=== PATIENT | male | born 1970 | race Caucasian/White ===

== ENCOUNTER 2017-11-06 21:11 | Inpatient (IN) | payer OTHER ==
[2017-11-07] MEDS: ONDANSETRON 4 MG INJ IV (00:51)
[2017-11-07] MEDS: SOD CHLORIDE 0.9% 1,000 ML IV ×2 (00:52→10:38)
[2017-11-07 01:09] LABS: ADD MAN DIFF? NO
[2017-11-07 01:11] LABS: BASOPHILS % 0.2 % (0.0-2.0); HEMATOCRIT 31.4 % (42.0-52.0); HEMOGLOBIN 10.5 g/dl (14.0-18.0); LYMPHOCYTES # 1.7 10^3/ul (0.8-2.9); LYMPHOCYTES % 12.3 % (15.0-51.0); MEAN CORPUSCULAR HEMOGLOBIN 29.8 pg (29.0-33.0); MEAN CORPUSCULAR HGB CONC 33.4 g/dl (32.0-37.0); MEAN CORPUSCULAR VOLUME 89.2 fl (82.0-101.0); MEAN PLATELET VOLUME 9.5 fl (7.4-10.4); MONOCYTE # 0.7 10^3/ul (0.3-0.9); NEUTROPHIL # 11.1 10^3/ul (1.6-7.5); NEUTROPHILS % 82.1 % (39.0-77.0); PLATELET COUNT 241 10^3/UL (140-415); RED BLOOD COUNT 3.52 10^6/ul (4.70-6.10); RED CELL DISTRIBUTION WIDTH 11.9 % (11.5-14.5)
[2017-11-07 01:11] LABS: WHITE BLOOD COUNT 13.5 10^3/ul (4.8-10.8)
[2017-11-07 01:32] LABS: ACETAMINOPHEN < 10.0 ug/ml (10.0-30.0); ALANINE AMINOTRANSFERASE 31 IU/L (13-69); ALBUMIN 3.9 g/dl (3.3-4.9); ALBUMIN/GLOBULIN RATIO 1.21; ALKALINE PHOSPHATASE 78 IU/L (42-121); ANION GAP 14 (8-16); ASPARTATE AMINO TRANSFERASE 28 IU/L (15-46); BILIRUBIN,INDIRECT 0.8 mg/dl (0-1.1); BILIRUBIN,TOTAL 0.8 mg/dl (0.2-1.3); BLOOD UREA NITROGEN 19 mg/dl (7-20); CARBON DIOXIDE 24 mmol/L (21-31); CHLORIDE 103 mmol/L (97-110); ETHANOL < 10.0 mg/dl; GLUCOSE 114 mg/dl (70-220); POTASSIUM 3.5 mmol/L (3.5-5.1); SALICYLATE < 1.0 mg/dl (5.0-30.0); SODIUM 137 mmol/L (135-144); TOTAL PROTEIN 7.1 g/dl (6.1-8.1)
[2017-11-07] MEDS: SODIUM CHLORIDE 0.9% 1L BAG IV* (02:50)
[2017-11-07] MEDS: CEFEPIME 2GM/50 ML (PMX) 50 ML IVPB (02:54)
[2017-11-07 03:11] LABS: LACTIC ACID 1.1 mmol/L (0.5-2.0)
[2017-11-07 03:36] LABS: COCAINE Positive (NEGATIVE); OPIATES Negative (NEGATIVE)
[2017-11-07 03:43] LABS: ADD UMIC YES; UR ASCORBIC ACID NEGATIVE (NEGATIVE); UR BACTERIA MODERATE /HPF (NONE SEEN); UR BILIRUBIN (Dip) NEGATIVE (NEGATIVE); UR BLOOD (Dip) 1+ mg/dL (NEGATIVE); UR CLARITY SLIGHTLY CLOUDY (CLEAR); UR COLOR AMBER (YELLOW); UR GLUCOSE (Dip) NEGATIVE (NEGATIVE); UR KETONES (Dip) TRACE mg/dL (NEGATIVE); UR LEUKOCYTE ESTERASE (Dip) 3+ Leu/ul (NEGATIVE); UR MUCUS MANY /HPF (NONE SEEN); UR NITRITE (Dip) NEGATIVE (NEGATIVE); UR RBC 8 /HPF (0-5); UR SPECIFIC GRAVITY (Dip) 1.026 (1.003-1.030); UR SQUAMOUS EPITHELIAL CELL FEW /HPF (FEW); UR TOTAL PROTEIN (Dip) 1+ mg/dl (NEGATIVE); UR UROBILINOGEN (Dip) 2+ mg/dL (NEGATIVE); UR WBC > 182 /HPF (0-5)
[2017-11-07 03:47] LABS: BARBITURATES Negative (NEGATIVE); BENZODIAZEPINES Negative (NEGATIVE); CANNABINOIDS Positive (NEGATIVE)
[2017-11-07 04:03] LABS: AMPHETAMINE/METHAMPHETAMINE POSITIVE (NEGATIVE)
[2017-11-07 04:30] LABS: TROPONIN-I < 0.012 ng/ml (0.00-0.12)
[2017-11-07 07:04] LABS: LACTIC ACID 0.7 mmol/L (0.5-2.0)
[2017-11-07] MEDS ORDERED: NACL 0.9% 3 ML SYG IV (10:00)
[2017-11-07] MEDS ORDERED: ALBUTEROL/IPRATROPIUM (NEB) 3 ML AMP HHN (10:00)
[2017-11-07] MEDS ORDERED: ONDANSETRON 4 MG INJ IV (10:00)
[2017-11-07] MEDS: HEPARIN 5,000 UNIT/0.5 ML VIAL SC ×3 (10:37→21:02)
[2017-11-07] MEDS: CEFTRIAXONE 1 GM/50 ML (PMX) 50 ML IVPB (10:38)
[2017-11-07] MEDS: ACETAMINOPHEN 325 MG TAB PO (15:21)
[2017-11-07] MEDS ORDERED: VANCOMYCIN IV PER PHARMACY XX (18:00)
[2017-11-07 19:20] LABS: LACTIC ACID 1.7 mmol/L (0.5-2.0)
[2017-11-07] MEDS: morphine 2 MG INJ IV (20:35)
[2017-11-07] MEDS: NS + KCL 20 MEQ 1,000 ML IV (20:43)
[2017-11-07] MEDS: VANCOMYCIN 1.5 GM in SOD CHLORIDE 0.9% 250 ML IVPB (20:43)
[2017-11-07] MEDS: NITROGLYCERIN (SL) 0.4 MG TAB SL (20:58)
[2017-11-07] MEDS: IPRATROPIUM (NEB) 0.5 MG/2.5 ML AMP HHN (21:03)
[2017-11-07] MEDS: LEVALBUTEROL (NEB) 1.25 MG/0.5 ML AMP HHN (21:03)
[2017-11-07] MEDS: GUAIFENESIN 20 MG/ML 5ML CUP PO (21:43)
[2017-11-07 21:45] LABS: TROPONIN-I < 0.012 ng/ml (0.00-0.12)
[2017-11-08] MEDS: ACETAMINOPHEN 325 MG TAB PO (00:48)
[2017-11-08] MEDS: GUAIFENESIN 20 MG/ML 5ML CUP PO ×4 (05:45→22:41)
[2017-11-08 06:02] LABS: ADD MAN DIFF? NO
[2017-11-08 06:06] LABS: BASOPHILS % 0.3 % (0.0-2.0); EOSINOPHILS % 0.5 % (0.0-7.0); HEMATOCRIT 29.9 % (42.0-52.0); HEMOGLOBIN 9.8 g/dl (14.0-18.0); LYMPHOCYTES # 1.3 10^3/ul (0.8-2.9); MEAN CORPUSCULAR HEMOGLOBIN 30.2 pg (29.0-33.0); MEAN CORPUSCULAR HGB CONC 32.8 g/dl (32.0-37.0); MEAN PLATELET VOLUME 9.5 fl (7.4-10.4); MONOCYTE # 0.5 10^3/ul (0.3-0.9); MONOCYTES % 6.5 % (0.0-11.0); NEUTROPHILS % 76.4 % (39.0-77.0); PLATELET COUNT 232 10^3/UL (140-415); RED BLOOD COUNT 3.25 10^6/ul (4.70-6.10); RED CELL DISTRIBUTION WIDTH 11.9 % (11.5-14.5)
[2017-11-08 06:06] LABS: WHITE BLOOD COUNT 7.9 10^3/ul (4.8-10.8)
[2017-11-08 06:29] LABS: ALANINE AMINOTRANSFERASE 27 IU/L (13-69); ALBUMIN/GLOBULIN RATIO 1.07; ALKALINE PHOSPHATASE 67 IU/L (42-121); ANION GAP 8 (8-16); ASPARTATE AMINO TRANSFERASE 24 IU/L (15-46); BILIRUBIN,INDIRECT 0.4 mg/dl (0-1.1); BILIRUBIN,TOTAL 0.4 mg/dl (0.2-1.3); BLOOD UREA NITROGEN 6 mg/dl (7-20); CALCIUM 8.5 mg/dl (8.4-10.2); CARBON DIOXIDE 30 mmol/L (21-31); CHLORIDE 110 mmol/L (97-110); CREATININE 0.88 mg/dl (0.61-1.24); GLUCOSE 106 mg/dl (70-220); PHOSPHORUS 3.3 mg/dl (2.5-4.9); POTASSIUM 4.2 mmol/L (3.5-5.1); SODIUM 144 mmol/L (135-144); TOTAL PROTEIN 5.8 g/dl (6.1-8.1)
[2017-11-08 06:44] LABS: MAGNESIUM 2.1 mg/dl (1.7-2.5)
[2017-11-08] MEDS: HEPARIN 5,000 UNIT/0.5 ML VIAL SC ×2 (09:00→21:00)
[2017-11-08] MEDS: morphine 2 MG INJ IV ×4 (09:00→22:41)
[2017-11-08] MEDS: VANCOMYCIN 1 GM 250 ML IVPB (09:01)
[2017-11-08] MEDS: NS + KCL 20 MEQ 1,000 ML IV (09:20)
[2017-11-08] MEDS: HYDROCODONE/APAP (5/325) TAB PO (12:00)
[2017-11-08] MEDS: CEFTRIAXONE 1 GM/50 ML (PMX) 50 ML IVPB (14:21)
[2017-11-08] MEDS: MEROPENEM 1 GM/50ML(PMX) 50 ML IVPB ×2 (15:04→22:08)
[2017-11-08] MEDS ORDERED: PHENYTOIN (25 MG/ML PO SYG) PO (21:00)
[2017-11-08] MEDS: PHENYTOIN (100 MG/4 ML) CUP PO (22:08)
[2017-11-08] MEDS: OXCARBAZEPINE 300 MG TAB PO (22:09)
[2017-11-08] MEDS: traZODone 100 MG TAB PO (22:09)
[2017-11-09 01:45] LABS: VANCOMYCIN,TROUGH < 5.0 ug/ml (10.0-20.0)
[2017-11-09] MEDS: VANCOMYCIN 1 GM 250 ML IVPB ×3 (04:48→20:02)
[2017-11-09] MEDS: MEROPENEM 1 GM/50ML(PMX) 50 ML IVPB (04:49)
[2017-11-09] MEDS: PHENYTOIN (100 MG/4 ML) CUP PO ×2 (08:29→20:52)
[2017-11-09] MEDS: VENLAFAXINE (XR) 37.5 MG CAP PO (08:29)
[2017-11-09] MEDS: OXCARBAZEPINE 300 MG TAB PO ×2 (08:29→20:52)
[2017-11-09] MEDS: HEPARIN 5,000 UNIT/0.5 ML VIAL SC ×2 (08:29→20:57)
[2017-11-09] MEDS ORDERED: VENLAFAXINE (XR) 75 MG CAP PO (09:00)
[2017-11-09] MEDS: CEFTRIAXONE 1 GM/50 ML (PMX) 50 ML IVPB (09:35)
[2017-11-09 12:07] LABS: ADD MAN DIFF? NO
[2017-11-09 12:11] LABS: BASOPHILS % 0.1 % (0.0-2.0); EOSINOPHILS # 0.2 10^3/ul (0.0-0.5); EOSINOPHILS % 2.2 % (0.0-7.0); HEMATOCRIT 33.4 % (42.0-52.0); HEMOGLOBIN 11.1 g/dl (14.0-18.0); LYMPHOCYTES % 15.4 % (15.0-51.0); MEAN CORPUSCULAR HEMOGLOBIN 30.3 pg (29.0-33.0); MEAN CORPUSCULAR HGB CONC 33.2 g/dl (32.0-37.0); MEAN CORPUSCULAR VOLUME 91.3 fl (82.0-101.0); MEAN PLATELET VOLUME 9.2 fl (7.4-10.4); MONOCYTE # 0.5 10^3/ul (0.3-0.9); MONOCYTES % 7.3 % (0.0-11.0); NEUTROPHILS % 74.7 % (39.0-77.0); PLATELET COUNT 329 10^3/UL (140-415); RED BLOOD COUNT 3.66 10^6/ul (4.70-6.10); RED CELL DISTRIBUTION WIDTH 11.6 % (11.5-14.5)
[2017-11-09 12:11] LABS: WHITE BLOOD COUNT 6.7 10^3/ul (4.8-10.8)
[2017-11-09] MEDS: morphine 2 MG INJ IV (12:15)
[2017-11-09 12:31] LABS: ANION GAP 10 (8-16); BLOOD UREA NITROGEN 8 mg/dl (7-20); CALCIUM 8.5 mg/dl (8.4-10.2); CARBON DIOXIDE 29 mmol/L (21-31); CHLORIDE 108 mmol/L (97-110); CREATININE 0.77 mg/dl (0.61-1.24); GLUCOSE 106 mg/dl (70-220); POTASSIUM 4.1 mmol/L (3.5-5.1); SODIUM 143 mmol/L (135-144)
[2017-11-09] MEDS ORDERED: IBUPROFEN 400 MG TAB NGT (13:00)
[2017-11-09] MEDS: ERTAPENEM SODIUM 1 GM in SOD CHLORIDE 0.9% 100 ML IVPB (15:42)
[2017-11-09] MEDS: HYDROCODONE/APAP (5/325) TAB PO (16:18)
[2017-11-09] MEDS ORDERED: VANCOMYCIN 1 GM 250 ML IVPB (17:00)
[2017-11-09] MEDS: traZODone 100 MG TAB PO (20:52)
[2017-11-09] MEDS: GUAIFENESIN 20 MG/ML 5ML CUP PO (20:58)
[2017-11-10] MEDS: VANCOMYCIN 1 GM 250 ML IVPB ×3 (04:06→20:33)
[2017-11-10] MEDS: GUAIFENESIN 20 MG/ML 5ML CUP PO (06:19)
[2017-11-10] MEDS: HEPARIN 5,000 UNIT/0.5 ML VIAL SC (09:00)
[2017-11-10] MEDS: PHENYTOIN (100 MG/4 ML) CUP PO ×2 (09:13→20:33)
[2017-11-10] MEDS: OXCARBAZEPINE 300 MG TAB PO ×2 (09:13→20:32)
[2017-11-10] MEDS: VENLAFAXINE (XR) 75 MG CAP PO (09:13)
[2017-11-10] MEDS: HYDROCODONE/APAP (5/325) TAB PO ×3 (09:15→20:34)
[2017-11-10 12:14] LABS: VANCOMYCIN,TROUGH 12.7 ug/ml (10.0-20.0)
[2017-11-10] MEDS: ERTAPENEM SODIUM 1 GM in SOD CHLORIDE 0.9% 100 ML IVPB (16:01)
[2017-11-10] MEDS: RIVAROXABAN 20 MG TABLET PO (18:26)
[2017-11-10] MEDS: traZODone 100 MG TAB PO (20:32)
[2017-11-11] MEDS: VANCOMYCIN 1 GM 250 ML IVPB ×3 (04:06→22:48)
[2017-11-11] MEDS: PHENYTOIN (100 MG/4 ML) CUP PO ×2 (08:48→20:15)
[2017-11-11] MEDS: OXCARBAZEPINE 300 MG TAB PO ×2 (08:48→20:15)
[2017-11-11] MEDS: VENLAFAXINE (XR) 75 MG CAP PO (08:48)
[2017-11-11] MEDS: GUAIFENESIN 20 MG/ML 5ML CUP PO ×2 (08:48→17:44)
[2017-11-11] MEDS: HYDROCODONE/APAP (5/325) TAB PO ×2 (08:54→17:44)
[2017-11-11] MEDS: RIVAROXABAN 20 MG TABLET PO (17:44)
[2017-11-11] MEDS: ERTAPENEM SODIUM 1 GM in SOD CHLORIDE 0.9% 100 ML IVPB (17:44)
[2017-11-11] MEDS: DOCUSATE SODIUM 100 MG CAP PO (20:15)
[2017-11-11] MEDS: traZODone 100 MG TAB PO (20:15)
[2017-11-12] MEDS: VANCOMYCIN 1 GM 250 ML IVPB ×2 (06:40→16:29)
[2017-11-12] MEDS: GUAIFENESIN 20 MG/ML 5ML CUP PO ×3 (08:23→21:38)
[2017-11-12] MEDS: OXCARBAZEPINE 300 MG TAB PO ×2 (08:23→21:35)
[2017-11-12] MEDS: HYDROCODONE/APAP (5/325) TAB PO ×3 (08:23→21:38)
[2017-11-12] MEDS: VENLAFAXINE (XR) 75 MG CAP PO (08:23)
[2017-11-12] MEDS: DOCUSATE SODIUM 100 MG CAP PO ×2 (08:23→21:35)
[2017-11-12] MEDS: PHENYTOIN (100 MG/4 ML) CUP PO ×2 (08:23→21:35)
[2017-11-12 10:55] LABS: BLOOD UREA NITROGEN 9 mg/dl (7-20)
[2017-11-12 10:55] LABS: CREATININE 0.78 mg/dl (0.61-1.24)
[2017-11-12] MEDS: ERTAPENEM SODIUM 1 GM in SOD CHLORIDE 0.9% 100 ML IVPB (14:39)
[2017-11-12] MEDS: RIVAROXABAN 20 MG TABLET PO (18:44)
[2017-11-12] MEDS: traZODone 100 MG TAB PO (22:27)
[2017-11-13] MEDS: VANCOMYCIN 1 GM 250 ML IVPB ×4 (00:41→23:39)
[2017-11-13] MEDS: VENLAFAXINE (XR) 75 MG CAP PO (08:42)
[2017-11-13] MEDS: PHENYTOIN (100 MG/4 ML) CUP PO ×2 (08:42→21:51)
[2017-11-13] MEDS: DOCUSATE SODIUM 100 MG CAP PO ×2 (08:42→23:39)
[2017-11-13] MEDS: OXCARBAZEPINE 300 MG TAB PO ×2 (08:42→21:52)
[2017-11-13] MEDS: HYDROCODONE/APAP (5/325) TAB PO ×2 (08:50→21:54)
[2017-11-13] MEDS: ERTAPENEM SODIUM 1 GM in SOD CHLORIDE 0.9% 100 ML IVPB (16:50)
[2017-11-13] MEDS: RIVAROXABAN 20 MG TABLET PO (17:50)
[2017-11-13] MEDS: traZODone 100 MG TAB PO (21:52)
[2017-11-13 22:57] LABS: VANCOMYCIN,TROUGH 13.3 ug/ml (10.0-20.0)
[2017-11-14] MEDS: VANCOMYCIN 1 GM 250 ML IVPB ×3 (06:29→23:31)
[2017-11-14] MEDS: PHENYTOIN (100 MG/4 ML) CUP PO ×2 (09:00→21:28)
[2017-11-14] MEDS: VENLAFAXINE (XR) 75 MG CAP PO (09:00)
[2017-11-14] MEDS: OXCARBAZEPINE 300 MG TAB PO ×2 (09:00→21:27)
[2017-11-14] MEDS: HYDROCODONE/APAP (5/325) TAB PO ×2 (09:00→21:27)
[2017-11-14] MEDS: DOCUSATE SODIUM 100 MG CAP PO ×2 (09:00→21:27)
[2017-11-14] MEDS: LORAZEPAM 1 MG TAB PO (11:46)
[2017-11-14] MEDS: LIDOCAINE 1% (MPF) 5 ML VIAL SC (12:50)
[2017-11-14] MEDS: SOD CHLORIDE 0.9% 100 ML (13:15)
[2017-11-14] MEDS: ERTAPENEM SODIUM 1 GM in SOD CHLORIDE 0.9% 100 ML IVPB (15:10)
[2017-11-14] MEDS: RIVAROXABAN 20 MG TABLET PO (17:45)
[2017-11-14] MEDS: traZODone 100 MG TAB PO (21:27)
[2017-11-15] MEDS: MENTHOL/METH SALICYLATE 30 GM OINT TOP (02:05)
[2017-11-15] MEDS: VANCOMYCIN 1 GM 250 ML IVPB ×3 (06:04→23:35)
[2017-11-15] MEDS: GUAIFENESIN 20 MG/ML 5ML CUP PO (06:04)
[2017-11-15] MEDS: VENLAFAXINE (XR) 75 MG CAP PO (09:08)
[2017-11-15] MEDS: PHENYTOIN (100 MG/4 ML) CUP PO ×2 (09:08→20:30)
[2017-11-15] MEDS: OXCARBAZEPINE 300 MG TAB PO ×2 (09:09→20:30)
[2017-11-15] MEDS: DOCUSATE SODIUM 100 MG CAP PO ×2 (09:09→20:30)
[2017-11-15 12:13] LABS: BLOOD UREA NITROGEN 12 mg/dl (7-20)
[2017-11-15] MEDS: HYDROCODONE/APAP (5/325) TAB PO (14:56)
[2017-11-15] MEDS: ERTAPENEM SODIUM 1 GM in SOD CHLORIDE 0.9% 100 ML IVPB (16:26)
[2017-11-15] MEDS: RIVAROXABAN 20 MG TABLET PO (17:29)
[2017-11-15] MEDS: traZODone 100 MG TAB PO (20:33)
[2017-11-16] MEDS: VANCOMYCIN 1 GM 250 ML IVPB ×3 (06:17→23:20)
[2017-11-16] MEDS: PHENYTOIN (100 MG/4 ML) CUP PO ×2 (09:27→20:55)
[2017-11-16] MEDS: OXCARBAZEPINE 300 MG TAB PO ×2 (09:27→20:55)
[2017-11-16] MEDS: VENLAFAXINE (XR) 75 MG CAP PO (09:27)
[2017-11-16] MEDS: DOCUSATE SODIUM 100 MG CAP PO ×2 (09:27→20:55)
[2017-11-16] MEDS: HYDROCODONE/APAP (5/325) TAB PO ×2 (09:27→16:38)
[2017-11-16] MEDS: ERTAPENEM SODIUM 1 GM in SOD CHLORIDE 0.9% 100 ML IVPB (16:37)
[2017-11-16] MEDS: RIVAROXABAN 20 MG TABLET PO (17:21)
[2017-11-16] MEDS: traZODone 100 MG TAB PO (20:55)
[2017-11-17 07:35] LABS: VANCOMYCIN,TROUGH 18.7 ug/ml (10.0-20.0)
[2017-11-17] MEDS: VANCOMYCIN 1 GM 250 ML IVPB (08:19)
[2017-11-17] MEDS: PHENYTOIN (100 MG/4 ML) CUP PO ×2 (08:20→20:54)
[2017-11-17] MEDS: DOCUSATE SODIUM 100 MG CAP PO ×2 (08:20→20:53)
[2017-11-17] MEDS: OXCARBAZEPINE 300 MG TAB PO ×2 (08:20→20:53)
[2017-11-17] MEDS: VENLAFAXINE (XR) 75 MG CAP PO (08:20)
[2017-11-17] MEDS: VANCOMYCIN 750 MG in DEXTROSE 5% 150 ML IVPB ×2 (13:45→22:55)
[2017-11-17] MEDS: ERTAPENEM SODIUM 1 GM in SOD CHLORIDE 0.9% 100 ML IVPB (15:24)
[2017-11-17] MEDS: HYDROCODONE/APAP (5/325) TAB PO ×2 (15:24→22:07)
[2017-11-17] MEDS: RIVAROXABAN 20 MG TABLET PO (18:11)
[2017-11-17] MEDS: traZODone 100 MG TAB PO (20:53)
[2017-11-18] MEDS: VANCOMYCIN 750 MG in DEXTROSE 5% 150 ML IVPB ×3 (05:37→23:19)
[2017-11-18 06:25] LABS: BLOOD UREA NITROGEN 13 mg/dl (7-20)
[2017-11-18 06:25] LABS: CREATININE 0.81 mg/dl (0.61-1.24)
[2017-11-18] MEDS: VENLAFAXINE (XR) 75 MG CAP PO (08:53)
[2017-11-18] MEDS: PHENYTOIN (100 MG/4 ML) CUP PO ×2 (08:53→22:37)
[2017-11-18] MEDS: DOCUSATE SODIUM 100 MG CAP PO ×2 (08:53→22:37)
[2017-11-18] MEDS: OXCARBAZEPINE 300 MG TAB PO ×2 (08:53→22:37)
[2017-11-18] MEDS: HYDROCODONE/APAP (5/325) TAB PO ×2 (08:58→22:47)
[2017-11-18] MEDS: ERTAPENEM SODIUM 1 GM in SOD CHLORIDE 0.9% 100 ML IVPB (17:15)
[2017-11-18] MEDS: RIVAROXABAN 20 MG TABLET PO (17:15)
[2017-11-18 22:06] LABS: VANCOMYCIN,TROUGH 13.1 ug/ml (10.0-20.0)
[2017-11-18] MEDS: traZODone 100 MG TAB PO (22:37)
[2017-11-19] MEDS: VANCOMYCIN 750 MG in DEXTROSE 5% 150 ML IVPB ×3 (05:59→21:52)
[2017-11-19] MEDS: PHENYTOIN (100 MG/4 ML) CUP PO ×2 (08:51→20:35)
[2017-11-19] MEDS: VENLAFAXINE (XR) 75 MG CAP PO (08:51)
[2017-11-19] MEDS: OXCARBAZEPINE 300 MG TAB PO ×2 (08:51→20:35)
[2017-11-19] MEDS: DOCUSATE SODIUM 100 MG CAP PO ×2 (08:51→20:34)
[2017-11-19] MEDS: HYDROCODONE/APAP (5/325) TAB PO ×2 (08:57→14:59)
[2017-11-19] MEDS: ERTAPENEM SODIUM 1 GM in SOD CHLORIDE 0.9% 100 ML IVPB (15:39)
[2017-11-19] MEDS: RIVAROXABAN 20 MG TABLET PO (17:19)
[2017-11-19] MEDS: NITROGLYCERIN (SL) 0.4 MG TAB SL ×3 (19:40→20:16)
[2017-11-19] MEDS: morphine 2 MG INJ IV (20:32)
[2017-11-19] MEDS: traZODone 100 MG TAB PO (20:35)
[2017-11-19 22:53] LABS: TROPONIN-I < 0.012 ng/ml (0.000-0.120)
[2017-11-20] MEDS: VANCOMYCIN 750 MG in DEXTROSE 5% 150 ML IVPB ×3 (05:26→22:12)
[2017-11-20] MEDS: PHENYTOIN (100 MG/4 ML) CUP PO ×2 (09:22→21:02)
[2017-11-20] MEDS: OXCARBAZEPINE 300 MG TAB PO ×2 (09:22→22:11)
[2017-11-20] MEDS: DOCUSATE SODIUM 100 MG CAP PO ×2 (09:22→21:02)
[2017-11-20] MEDS: VENLAFAXINE (XR) 75 MG CAP PO (09:22)
[2017-11-20] MEDS: HYDROCODONE/APAP (5/325) TAB PO ×2 (09:34→22:17)
[2017-11-20] MEDS: LACTOBACILLUS RHAMNOSUS CAP PO ×2 (12:40→21:02)
[2017-11-20] MEDS: ERTAPENEM SODIUM 1 GM in SOD CHLORIDE 0.9% 100 ML IVPB (16:33)
[2017-11-20] MEDS: RIVAROXABAN 20 MG TABLET PO (17:30)
[2017-11-20] MEDS: traZODone 100 MG TAB PO (21:03)
[2017-11-21] MEDS: VANCOMYCIN 750 MG in DEXTROSE 5% 150 ML IVPB (06:22)
[2017-11-21 06:26] LABS: ADD MAN DIFF? NO
[2017-11-21 06:32] LABS: BASOPHILS % 0.6 % (0.0-2.0); EOSINOPHILS # 0.2 10^3/ul (0.0-0.5); EOSINOPHILS % 3.5 % (0.0-7.0); HEMATOCRIT 33.4 % (42.0-52.0); HEMOGLOBIN 10.6 g/dl (14.0-18.0); LYMPHOCYTES # 2.1 10^3/ul (0.8-2.9); LYMPHOCYTES % 42.9 % (15.0-51.0); MEAN CORPUSCULAR HEMOGLOBIN 29.8 pg (29.0-33.0); MEAN CORPUSCULAR HGB CONC 31.7 g/dl (32.0-37.0); MEAN CORPUSCULAR VOLUME 93.8 fl (82.0-101.0); MEAN PLATELET VOLUME 8.8 fl (7.4-10.4); MONOCYTE # 0.3 10^3/ul (0.3-0.9); NEUTROPHIL # 2.2 10^3/ul (1.6-7.5); NEUTROPHILS % 45.2 % (39.0-77.0); PLATELET COUNT 393 10^3/UL (140-415); RED BLOOD COUNT 3.56 10^6/ul (4.70-6.10); RED CELL DISTRIBUTION WIDTH 12.3 % (11.5-14.5)
[2017-11-21 06:32] LABS: WHITE BLOOD COUNT 4.9 10^3/ul (4.8-10.8)
[2017-11-21 07:06] LABS: INR 1.09; PROTIME 14.2 Sec (11.9-14.9); PT RATIO 1.1
[2017-11-21 07:26] LABS: ALANINE AMINOTRANSFERASE 27 IU/L (13-69); ALBUMIN 3.4 g/dl (3.3-4.9); ALBUMIN/GLOBULIN RATIO 1.06; ALKALINE PHOSPHATASE 109 IU/L (42-121); ANION GAP 13 (8-16); ASPARTATE AMINO TRANSFERASE 22 IU/L (15-46); BILIRUBIN,INDIRECT 0.1 mg/dl (0-1.1); BILIRUBIN,TOTAL 0.1 mg/dl (0.2-1.3); BLOOD UREA NITROGEN 13 mg/dl (7-20); CALCIUM 8.9 mg/dl (8.4-10.2); CARBON DIOXIDE 28 mmol/L (21-31); CHLORIDE 108 mmol/L (97-110); CREATININE 0.82 mg/dl (0.61-1.24); GLUCOSE 88 mg/dl (70-220); MAGNESIUM 1.9 mg/dl (1.7-2.5); PHOSPHORUS 4.7 mg/dl (2.5-4.9); POTASSIUM 4.3 mmol/L (3.5-5.1); SODIUM 145 mmol/L (135-144); TOTAL PROTEIN 6.6 g/dl (6.1-8.1)
[2017-11-21] MEDS: LACTOBACILLUS RHAMNOSUS CAP PO ×2 (08:08→20:50)
[2017-11-21] MEDS: PHENYTOIN (100 MG/4 ML) CUP PO ×2 (08:08→20:50)
[2017-11-21] MEDS: OXCARBAZEPINE 300 MG TAB PO ×2 (08:09→20:50)
[2017-11-21] MEDS: VENLAFAXINE (XR) 75 MG CAP PO (08:09)
[2017-11-21] MEDS: DOCUSATE SODIUM 100 MG CAP PO ×2 (08:09→20:50)
[2017-11-21 08:27] LABS: PHENYTOIN (DILANTIN) 3.6 ug/ml (10.0-20.0)
[2017-11-21] MEDS: HYDROCODONE/APAP (5/325) TAB PO ×2 (09:25→16:29)
[2017-11-21] MEDS: RIVAROXABAN 20 MG TABLET PO (17:18)
[2017-11-21] MEDS: traZODone 100 MG TAB PO (20:50)
[2017-11-22 06:20] LABS: ADD MAN DIFF? NO
[2017-11-22 06:29] LABS: BASOPHILS % 0.6 % (0.0-2.0); EOSINOPHILS # 0.2 10^3/ul (0.0-0.5); EOSINOPHILS % 4.5 % (0.0-7.0); HEMATOCRIT 35.2 % (42.0-52.0); HEMOGLOBIN 11.1 g/dl (14.0-18.0); MEAN CORPUSCULAR HEMOGLOBIN 29.6 pg (29.0-33.0); MEAN CORPUSCULAR HGB CONC 31.5 g/dl (32.0-37.0); MEAN CORPUSCULAR VOLUME 93.9 fl (82.0-101.0); MEAN PLATELET VOLUME 9.2 fl (7.4-10.4); MONOCYTE # 0.4 10^3/ul (0.3-0.9); MONOCYTES % 7.4 % (0.0-11.0); NEUTROPHIL # 2.1 10^3/ul (1.6-7.5); NEUTROPHILS % 44.1 % (39.0-77.0); PLATELET COUNT 424 10^3/UL (140-415); RED BLOOD COUNT 3.75 10^6/ul (4.70-6.10); RED CELL DISTRIBUTION WIDTH 12.3 % (11.5-14.5)
[2017-11-22 06:29] LABS: WHITE BLOOD COUNT 4.7 10^3/ul (4.8-10.8)
[2017-11-22 07:31] LABS: ALANINE AMINOTRANSFERASE 26 IU/L (13-69); ALBUMIN 3.6 g/dl (3.3-4.9); ALBUMIN/GLOBULIN RATIO 1.16; ALKALINE PHOSPHATASE 101 IU/L (42-121); ANION GAP 13 (8-16); ASPARTATE AMINO TRANSFERASE 22 IU/L (15-46); BILIRUBIN,INDIRECT 0.1 mg/dl (0-1.1); BILIRUBIN,TOTAL 0.1 mg/dl (0.2-1.3); BLOOD UREA NITROGEN 16 mg/dl (7-20); CALCIUM 9.1 mg/dl (8.4-10.2); CARBON DIOXIDE 29 mmol/L (21-31); CHLORIDE 107 mmol/L (97-110); CREATININE 0.83 mg/dl (0.61-1.24); GLUCOSE 92 mg/dl (70-220); MAGNESIUM 1.9 mg/dl (1.7-2.5); PHOSPHORUS 5.6 mg/dl (2.5-4.9); POTASSIUM 4.2 mmol/L (3.5-5.1); SODIUM 145 mmol/L (135-144); TOTAL PROTEIN 6.7 g/dl (6.1-8.1)
[2017-11-22] MEDS: HYDROCODONE/APAP (5/325) TAB PO ×3 (08:46→20:20)
[2017-11-22] MEDS: VENLAFAXINE (XR) 75 MG CAP PO (08:46)
[2017-11-22] MEDS: OXCARBAZEPINE 300 MG TAB PO ×2 (08:46→20:19)
[2017-11-22] MEDS: PHENYTOIN (100 MG/4 ML) CUP PO ×2 (08:46→20:19)
[2017-11-22] MEDS: DOCUSATE SODIUM 100 MG CAP PO ×2 (08:46→20:19)
[2017-11-22] MEDS: LACTOBACILLUS RHAMNOSUS CAP PO ×2 (08:46→20:20)
[2017-11-22] MEDS: RIVAROXABAN 20 MG TABLET PO (18:01)
[2017-11-22] MEDS: traZODone 100 MG TAB PO (20:20)
[2017-11-23] MEDS: DOCUSATE SODIUM 100 MG CAP PO ×2 (08:50→20:46)
[2017-11-23] MEDS: VENLAFAXINE (XR) 75 MG CAP PO (08:50)
[2017-11-23] MEDS: LACTOBACILLUS RHAMNOSUS CAP PO ×2 (08:50→20:46)
[2017-11-23] MEDS: OXCARBAZEPINE 300 MG TAB PO ×2 (08:50→20:47)
[2017-11-23] MEDS: HYDROCODONE/APAP (5/325) TAB PO ×2 (08:50→20:52)
[2017-11-23] MEDS: PHENYTOIN (100 MG/4 ML) CUP PO ×2 (08:50→20:46)
[2017-11-23] MEDS: RIVAROXABAN 20 MG TABLET PO (17:40)
[2017-11-23] MEDS: traZODone 100 MG TAB PO (20:46)
[2017-11-24] MEDS: LACTOBACILLUS RHAMNOSUS CAP PO ×2 (08:46→20:52)
[2017-11-24] MEDS: PHENYTOIN (100 MG/4 ML) CUP PO ×2 (08:46→20:52)
[2017-11-24] MEDS: OXCARBAZEPINE 300 MG TAB PO ×2 (08:46→20:53)
[2017-11-24] MEDS: DOCUSATE SODIUM 100 MG CAP PO ×2 (08:46→20:52)
[2017-11-24] MEDS: VENLAFAXINE (XR) 75 MG CAP PO (08:47)
[2017-11-24] MEDS: HYDROCODONE/APAP (5/325) TAB PO ×2 (08:53→20:59)
[2017-11-24] MEDS: RIVAROXABAN 20 MG TABLET PO (18:29)
[2017-11-24] MEDS: traZODone 100 MG TAB PO (20:52)
[2017-11-25] MEDS: VENLAFAXINE (XR) 75 MG CAP PO (09:15)
[2017-11-25] MEDS: HYDROCODONE/APAP (5/325) TAB PO ×2 (09:15→18:37)
[2017-11-25] MEDS: DOCUSATE SODIUM 100 MG CAP PO ×2 (09:15→20:48)
[2017-11-25] MEDS: LACTOBACILLUS RHAMNOSUS CAP PO ×2 (09:16→20:48)
[2017-11-25] MEDS: PHENYTOIN (100 MG/4 ML) CUP PO ×2 (09:16→20:48)
[2017-11-25] MEDS: OXCARBAZEPINE 300 MG TAB PO ×2 (09:16→20:48)
[2017-11-25] MEDS: RIVAROXABAN 20 MG TABLET PO (17:01)
[2017-11-25] MEDS: traZODone 100 MG TAB PO (20:48)
[2017-11-26] MEDS: DOCUSATE SODIUM 100 MG CAP PO ×2 (08:32→20:52)
[2017-11-26] MEDS: VENLAFAXINE (XR) 75 MG CAP PO (08:33)
[2017-11-26] MEDS: OXCARBAZEPINE 300 MG TAB PO ×2 (08:33→20:55)
[2017-11-26] MEDS: LACTOBACILLUS RHAMNOSUS CAP PO ×2 (08:33→20:52)
[2017-11-26] MEDS: PHENYTOIN (100 MG/4 ML) CUP PO ×2 (08:33→20:55)
[2017-11-26] MEDS: HYDROCODONE/APAP (5/325) TAB PO ×3 (08:39→21:00)
[2017-11-26] MEDS: RIVAROXABAN 20 MG TABLET PO (17:24)
[2017-11-26] MEDS: traZODone 100 MG TAB PO (20:52)
[2017-11-27] MEDS: VENLAFAXINE (XR) 75 MG CAP PO (08:43)
[2017-11-27] MEDS: PHENYTOIN (100 MG/4 ML) CUP PO ×2 (08:43→21:37)
[2017-11-27] MEDS: DOCUSATE SODIUM 100 MG CAP PO ×2 (08:43→21:37)
[2017-11-27] MEDS: LACTOBACILLUS RHAMNOSUS CAP PO ×2 (08:43→21:38)
[2017-11-27] MEDS: OXCARBAZEPINE 300 MG TAB PO ×2 (08:43→21:38)
[2017-11-27] MEDS: HYDROCODONE/APAP (5/325) TAB PO ×2 (09:58→19:05)
[2017-11-27] MEDS: RIVAROXABAN 20 MG TABLET PO (17:25)
[2017-11-27] MEDS: morphine 2 MG INJ IV (20:15)
[2017-11-27] MEDS: traZODone 100 MG TAB PO (21:37)
[2017-11-28] MEDS: HYDROCODONE/APAP (5/325) TAB PO ×2 (06:39→14:33)
[2017-11-28] MEDS: VENLAFAXINE (XR) 75 MG CAP PO (08:10)
[2017-11-28] MEDS: LACTOBACILLUS RHAMNOSUS CAP PO ×2 (08:10→20:34)
[2017-11-28] MEDS: PHENYTOIN (100 MG/4 ML) CUP PO ×2 (08:10→20:33)
[2017-11-28] MEDS: OXCARBAZEPINE 300 MG TAB PO ×2 (08:10→20:34)
[2017-11-28] MEDS: DOCUSATE SODIUM 100 MG CAP PO ×2 (08:10→20:34)
[2017-11-28] MEDS: POLYETHYLENE GLYCOL 17 GM PACKET PO (11:00)
[2017-11-28] MEDS: SENNA/DOCUSATE NA (8.6MG/50MG) TAB PO ×2 (11:00→20:33)
[2017-11-28] MEDS: RIVAROXABAN 20 MG TABLET PO (17:26)
[2017-11-28] MEDS: traZODone 100 MG TAB PO (20:34)
[2017-11-29] MEDS: HYDROCODONE/APAP (5/325) TAB PO ×3 (05:06→20:32)
[2017-11-29] MEDS: VENLAFAXINE (XR) 75 MG CAP PO (09:01)
[2017-11-29] MEDS: PHENYTOIN (100 MG/4 ML) CUP PO ×2 (09:01→20:31)
[2017-11-29] MEDS: POLYETHYLENE GLYCOL 17 GM PACKET PO (09:01)
[2017-11-29] MEDS: SENNA/DOCUSATE NA (8.6MG/50MG) TAB PO ×2 (09:01→20:32)
[2017-11-29] MEDS: OXCARBAZEPINE 300 MG TAB PO ×2 (09:01→20:32)
[2017-11-29] MEDS: DOCUSATE SODIUM 100 MG CAP PO ×2 (09:01→20:32)
[2017-11-29] MEDS: LACTOBACILLUS RHAMNOSUS CAP PO ×2 (09:01→20:32)
[2017-11-29] MEDS: RIVAROXABAN 20 MG TABLET PO (17:07)
[2017-11-29] MEDS: traZODone 100 MG TAB PO (20:32)
[2017-11-30] MEDS: SENNA/DOCUSATE NA (8.6MG/50MG) TAB PO ×2 (09:22→20:50)
[2017-11-30] MEDS: DOCUSATE SODIUM 100 MG CAP PO ×2 (09:22→20:49)
[2017-11-30] MEDS: POLYETHYLENE GLYCOL 17 GM PACKET PO (09:22)
[2017-11-30] MEDS: VENLAFAXINE (XR) 75 MG CAP PO (09:22)
[2017-11-30] MEDS: OXCARBAZEPINE 300 MG TAB PO ×2 (09:22→20:49)
[2017-11-30] MEDS: LACTOBACILLUS RHAMNOSUS CAP PO ×2 (09:22→20:49)
[2017-11-30] MEDS: PHENYTOIN (100 MG/4 ML) CUP PO ×2 (09:22→20:49)
[2017-11-30] MEDS: HYDROCODONE/APAP (5/325) TAB PO ×2 (09:28→17:10)
[2017-11-30] MEDS: LORAZEPAM 1 MG TAB PO (12:32)
[2017-11-30] MEDS: RIVAROXABAN 20 MG TABLET PO (17:10)
[2017-11-30] MEDS: traZODone 100 MG TAB PO (20:49)
[2017-12-01 05:45] LABS: ADD MAN DIFF? NO
[2017-12-01 05:47] LABS: BASOPHILS % 0.3 % (0.0-2.0); EOSINOPHILS # 0.2 10^3/ul (0.0-0.5); EOSINOPHILS % 4.7 % (0.0-7.0); HEMATOCRIT 36.6 % (42.0-52.0); HEMOGLOBIN 11.6 g/dl (14.0-18.0); LYMPHOCYTES # 1.6 10^3/ul (0.8-2.9); MEAN CORPUSCULAR HEMOGLOBIN 29.7 pg (29.0-33.0); MEAN CORPUSCULAR HGB CONC 31.7 g/dl (32.0-37.0); MEAN CORPUSCULAR VOLUME 93.8 fl (82.0-101.0); MEAN PLATELET VOLUME 9.4 fl (7.4-10.4); MONOCYTE # 0.4 10^3/ul (0.3-0.9); MONOCYTES % 10.4 % (0.0-11.0); NEUTROPHIL # 1.6 10^3/ul (1.6-7.5); NEUTROPHILS % 42.3 % (39.0-77.0); PLATELET COUNT 254 10^3/UL (140-415); RED CELL DISTRIBUTION WIDTH 12.7 % (11.5-14.5)
[2017-12-01 05:47] LABS: WHITE BLOOD COUNT 3.8 10^3/ul (4.8-10.8)
[2017-12-01 06:29] LABS: ANION GAP 11 (8-16); BLOOD UREA NITROGEN 15 mg/dl (7-20); CARBON DIOXIDE 29 mmol/L (21-31); CHLORIDE 108 mmol/L (97-110); CREATININE 0.89 mg/dl (0.61-1.24); GLUCOSE 96 mg/dl (70-220); MAGNESIUM 1.8 mg/dl (1.7-2.5); PHOSPHORUS 5.4 mg/dl (2.5-4.9); POTASSIUM 4.2 mmol/L (3.5-5.1); SODIUM 144 mmol/L (135-144)
[2017-12-01] MEDS: PHENYTOIN (100 MG/4 ML) CUP PO ×2 (08:01→21:40)
[2017-12-01] MEDS: LACTOBACILLUS RHAMNOSUS CAP PO ×2 (08:01→21:40)
[2017-12-01] MEDS: OXCARBAZEPINE 300 MG TAB PO ×2 (08:01→21:40)
[2017-12-01] MEDS: POLYETHYLENE GLYCOL 17 GM PACKET PO (08:01)
[2017-12-01] MEDS: VENLAFAXINE (XR) 75 MG CAP PO (08:01)
[2017-12-01] MEDS: SENNA/DOCUSATE NA (8.6MG/50MG) TAB PO ×2 (08:01→21:40)
[2017-12-01] MEDS: DOCUSATE SODIUM 100 MG CAP PO ×2 (08:02→21:40)
[2017-12-01] MEDS: HYDROCODONE/APAP (5/325) TAB PO ×3 (08:02→21:41)
[2017-12-01] MEDS: RIVAROXABAN 20 MG TABLET PO (17:37)
[2017-12-01] MEDS: traZODone 100 MG TAB PO (21:40)
[2017-12-02 06:59] LABS: ADD UMIC YES; UR ASCORBIC ACID NEGATIVE (NEGATIVE); UR BACTERIA FEW /HPF (NONE SEEN); UR BILIRUBIN (Dip) NEGATIVE (NEGATIVE); UR BLOOD (Dip) NEGATIVE (NEGATIVE); UR CLARITY SLIGHTLY CLOUDY (CLEAR); UR COLOR YELLOW (YELLOW); UR GLUCOSE (Dip) NEGATIVE (NEGATIVE); UR KETONES (Dip) NEGATIVE (NEGATIVE); UR LEUKOCYTE ESTERASE (Dip) TRACE Leu/ul (NEGATIVE); UR NITRITE (Dip) POSITIVE (NEGATIVE); UR RBC 0 /HPF (0-5); UR TOTAL PROTEIN (Dip) NEGATIVE (NEGATIVE); UR UROBILINOGEN (Dip) NEGATIVE (NEGATIVE); UR WBC 23 /HPF (0-5)
[2017-12-02] MEDS: HYDROCODONE/APAP (5/325) TAB PO ×2 (10:14→19:42)
[2017-12-02] MEDS: DOCUSATE SODIUM 100 MG CAP PO ×2 (10:14→21:41)
[2017-12-02] MEDS: PHENYTOIN (100 MG/4 ML) CUP PO ×2 (10:14→21:41)
[2017-12-02] MEDS: LACTOBACILLUS RHAMNOSUS CAP PO ×2 (10:14→21:41)
[2017-12-02] MEDS: VENLAFAXINE (XR) 75 MG CAP PO (10:15)
[2017-12-02] MEDS: OXCARBAZEPINE 300 MG TAB PO ×2 (10:15→21:41)
[2017-12-02] MEDS: SENNA/DOCUSATE NA (8.6MG/50MG) TAB PO ×2 (10:15→21:41)
[2017-12-02] MEDS: POLYETHYLENE GLYCOL 17 GM PACKET PO (10:15)
[2017-12-02] MEDS: RIVAROXABAN 20 MG TABLET PO (17:50)
[2017-12-02] MEDS: traZODone 100 MG TAB PO (21:41)
[2017-12-03] MEDS: OXCARBAZEPINE 300 MG TAB PO ×2 (08:52→20:34)
[2017-12-03] MEDS: SENNA/DOCUSATE NA (8.6MG/50MG) TAB PO ×2 (08:52→20:34)
[2017-12-03] MEDS: POLYETHYLENE GLYCOL 17 GM PACKET PO (08:52)
[2017-12-03] MEDS: PHENYTOIN (100 MG/4 ML) CUP PO ×2 (08:52→20:34)
[2017-12-03] MEDS: VENLAFAXINE (XR) 75 MG CAP PO (08:52)
[2017-12-03] MEDS: DOCUSATE SODIUM 100 MG CAP PO ×2 (08:52→20:34)
[2017-12-03] MEDS: LACTOBACILLUS RHAMNOSUS CAP PO ×2 (08:52→20:34)
[2017-12-03] MEDS: HYDROCODONE/APAP (5/325) TAB PO ×2 (08:59→20:41)
[2017-12-03] MEDS: RIVAROXABAN 20 MG TABLET PO (18:05)
[2017-12-03] MEDS: traZODone 100 MG TAB PO (20:34)
[2017-12-03] MEDS: GUAIFENESIN 20 MG/ML 5ML CUP PO (20:40)
[2017-12-03] MEDS: ERTAPENEM SODIUM 1 GM in SOD CHLORIDE 0.9% 100 ML IVPB (22:01)
[2017-12-04 06:25] LABS: ADD MAN DIFF? NO
[2017-12-04 06:39] LABS: BASOPHILS % 0.4 % (0.0-2.0); EOSINOPHILS # 0.2 10^3/ul (0.0-0.5); HEMATOCRIT 36.7 % (42.0-52.0); HEMOGLOBIN 11.4 g/dl (14.0-18.0); LYMPHOCYTES # 1.8 10^3/ul (0.8-2.9); LYMPHOCYTES % 32.9 % (15.0-51.0); MEAN CORPUSCULAR HGB CONC 31.1 g/dl (32.0-37.0); MEAN CORPUSCULAR VOLUME 93.4 fl (82.0-101.0); MEAN PLATELET VOLUME 9.9 fl (7.4-10.4); MONOCYTE # 0.5 10^3/ul (0.3-0.9); MONOCYTES % 8.8 % (0.0-11.0); NEUTROPHIL # 2.9 10^3/ul (1.6-7.5); NEUTROPHILS % 54.7 % (39.0-77.0); PLATELET COUNT 248 10^3/UL (140-415); RED BLOOD COUNT 3.93 10^6/ul (4.70-6.10); RED CELL DISTRIBUTION WIDTH 12.7 % (11.5-14.5)
[2017-12-04 06:39] LABS: WHITE BLOOD COUNT 5.4 10^3/ul (4.8-10.8)
[2017-12-04 07:26] LABS: ANION GAP 7 (8-16); BLOOD UREA NITROGEN 16 mg/dl (7-20); CALCIUM 8.9 mg/dl (8.4-10.2); CARBON DIOXIDE 29 mmol/L (21-31); CHLORIDE 108 mmol/L (97-110); CREATININE 0.86 mg/dl (0.61-1.24); GLUCOSE 90 mg/dl (70-220); POTASSIUM 4.2 mmol/L (3.5-5.1); SODIUM 140 mmol/L (135-144)
[2017-12-04 07:57] LABS: MAGNESIUM 1.9 mg/dl (1.7-2.5)
[2017-12-04] MEDS: DOCUSATE SODIUM 100 MG CAP PO ×2 (08:52→20:41)
[2017-12-04] MEDS: VENLAFAXINE (XR) 75 MG CAP PO (08:52)
[2017-12-04] MEDS: POLYETHYLENE GLYCOL 17 GM PACKET PO (08:52)
[2017-12-04] MEDS: SENNA/DOCUSATE NA (8.6MG/50MG) TAB PO ×2 (08:52→20:41)
[2017-12-04] MEDS: OXCARBAZEPINE 300 MG TAB PO ×2 (08:52→20:41)
[2017-12-04] MEDS: PHENYTOIN (100 MG/4 ML) CUP PO ×2 (08:52→20:41)
[2017-12-04] MEDS: LACTOBACILLUS RHAMNOSUS CAP PO ×2 (08:52→20:41)
[2017-12-04] MEDS: HYDROCODONE/APAP (5/325) TAB PO ×3 (08:57→20:48)
[2017-12-04] MEDS: RIVAROXABAN 20 MG TABLET PO (17:15)
[2017-12-04] MEDS: ERTAPENEM SODIUM 1 GM in SOD CHLORIDE 0.9% 100 ML IVPB (17:16)
[2017-12-04] MEDS: traZODone 100 MG TAB PO (20:41)
[2017-12-05] MEDS: HYDROCODONE/APAP (5/325) TAB PO ×3 (07:44→20:14)
[2017-12-05] MEDS: PHENYTOIN (100 MG/4 ML) CUP PO ×2 (08:49→20:04)
[2017-12-05] MEDS: VENLAFAXINE (XR) 75 MG CAP PO (08:50)
[2017-12-05] MEDS: LACTOBACILLUS RHAMNOSUS CAP PO ×2 (08:50→20:04)
[2017-12-05] MEDS: OXCARBAZEPINE 300 MG TAB PO ×2 (08:51→20:04)
[2017-12-05] MEDS: SENNA/DOCUSATE NA (8.6MG/50MG) TAB PO ×2 (08:51→20:04)
[2017-12-05] MEDS: POLYETHYLENE GLYCOL 17 GM PACKET PO (08:52)
[2017-12-05] MEDS: DOCUSATE SODIUM 100 MG CAP PO ×3 (08:52→20:13)
[2017-12-05] MEDS: ERTAPENEM SODIUM 1 GM in SOD CHLORIDE 0.9% 100 ML IVPB (16:30)
[2017-12-05] MEDS: RIVAROXABAN 20 MG TABLET PO (18:07)
[2017-12-05] MEDS: traZODone 100 MG TAB PO (20:04)
[2017-12-06] MEDS: HYDROCODONE/APAP (5/325) TAB PO ×3 (04:55→20:43)
[2017-12-06] MEDS: POLYETHYLENE GLYCOL 17 GM PACKET PO (09:00)
[2017-12-06] MEDS: DOCUSATE SODIUM 100 MG CAP PO ×2 (09:00→20:20)
[2017-12-06] MEDS: LACTOBACILLUS RHAMNOSUS CAP PO ×2 (09:21→20:19)
[2017-12-06] MEDS: VENLAFAXINE (XR) 75 MG CAP PO (09:21)
[2017-12-06] MEDS: OXCARBAZEPINE 300 MG TAB PO ×2 (09:21→20:19)
[2017-12-06] MEDS: PHENYTOIN (100 MG/4 ML) CUP PO ×2 (09:21→20:19)
[2017-12-06] MEDS: SENNA/DOCUSATE NA (8.6MG/50MG) TAB PO ×2 (09:21→20:19)
[2017-12-06] MEDS: ERTAPENEM SODIUM 1 GM in SOD CHLORIDE 0.9% 100 ML IVPB (15:45)
[2017-12-06] MEDS: RIVAROXABAN 20 MG TABLET PO (17:43)
[2017-12-06] MEDS: traZODone 100 MG TAB PO (20:19)
[2017-12-07] MEDS: POLYETHYLENE GLYCOL 17 GM PACKET PO ×2 (09:00→09:21)
[2017-12-07] MEDS: HYDROCODONE/APAP (5/325) TAB PO (09:19)
[2017-12-07] MEDS: VENLAFAXINE (XR) 75 MG CAP PO (09:20)
[2017-12-07] MEDS: DOCUSATE SODIUM 100 MG CAP PO (09:20)
[2017-12-07] MEDS: PHENYTOIN (100 MG/4 ML) CUP PO (09:20)
[2017-12-07] MEDS: SENNA/DOCUSATE NA (8.6MG/50MG) TAB PO (09:20)
[2017-12-07] MEDS: LACTOBACILLUS RHAMNOSUS CAP PO (09:20)
[2017-12-07] MEDS: OXCARBAZEPINE 300 MG TAB PO (09:20)
[2017-12-07] MEDS: LISINOPRIL 10 MG TAB PO (09:21)
== END 2017-12-07 14:17 | disposition left against medical advice (07) | DRG 871 ==
LOC: E/R 21:11 → PP2 11-07 06:02
PROC: 02HV33Z Insertion of Infusion Device into Superior Vena Cava, Percutaneous Approach (ICD-10-PCS; principal; 2017-11-14)
DX: A41.89 Other specified sepsis (principal); G93.41 Metabolic encephalopathy; E46 Unspecified protein-calorie malnutrition; G82.22 Paraplegia, incomplete; N30.00 Acute cystitis without hematuria; F33.9 Major depressive disorder, recurrent, unspecified; I82.509 Chronic embolism and thrombosis of unspecified deep veins of unspecified lower extremity; F17.200 Nicotine dependence, unspecified, uncomplicated; R65.20 Severe sepsis without septic shock; K59.00 Constipation, unspecified; N31.8 Other neuromuscular dysfunction of bladder; B96.20 Unspecified Escherichia coli [E. coli] as the cause of diseases classified elsewhere; R53.81 Other malaise; Z99.3 Dependence on wheelchair; F14.10 Cocaine abuse, uncomplicated; F15.10 Other stimulant abuse, uncomplicated; Z59.0 Homelessness; Z68.24 Body mass index [BMI] 24.0-24.9, adult
CPT/HCPCS: 36415; 36569; 71045; 76937; 80048; 80053; 80185; 80202; 80307; 81001; 82565; 83605; 83735; 84100; 84443; 84484; 84520; 85025; 85610; 87040; 87081; 87086; 93005; 93306; 94664; 96374; 96375; 97110; 97116; 97162; 97530; 99291-25

== ENCOUNTER 2018-10-25 16:35 | Emergency (ER) | payer OTHER ==
[2018-10-25] MEDS: NITROFURANTOIN (SR) 100 MG CAP PO (17:07)
== END 2018-10-25 20:25 | disposition home or self-care (01) ==
LOC: E/R 16:35
DX: N30.90 Cystitis, unspecified without hematuria (principal); I10 Essential (primary) hypertension; Z91.010 Allergy to peanuts
CPT/HCPCS: 99283; Z7502

== ENCOUNTER 2018-11-22 11:27 | Emergency (ER) | payer OTHER ==
[2018-11-22 12:41] LABS: ADD UMIC YES; UR ASCORBIC ACID NEGATIVE (NEGATIVE); UR BACTERIA FEW /HPF (NONE SEEN); UR BILIRUBIN (Dip) NEGATIVE (NEGATIVE); UR BLOOD (Dip) NEGATIVE (NEGATIVE); UR CLARITY SLIGHTLY CLOUDY (CLEAR); UR COLOR YELLOW (YELLOW); UR GLUCOSE (Dip) NEGATIVE (NEGATIVE); UR KETONES (Dip) NEGATIVE (NEGATIVE); UR LEUKOCYTE ESTERASE (Dip) 1+ Leu/ul (NEGATIVE); UR NITRITE (Dip) POSITIVE (NEGATIVE); UR RBC 0 /HPF (0-5); UR TOTAL PROTEIN (Dip) NEGATIVE (NEGATIVE); UR UROBILINOGEN (Dip) NEGATIVE (NEGATIVE); UR WBC 13 /HPF (0-5)
== END 2018-11-22 15:24 | disposition home or self-care (01) ==
LOC: E/R 11:27
DX: N30.90 Cystitis, unspecified without hematuria (principal)
CPT/HCPCS: 81001; 87086; 99283

== ENCOUNTER 2019-01-10 21:35 | Emergency (ER) | payer OTHER ==
[2019-01-10 22:13] LABS: ADD MAN DIFF? NO
[2019-01-10 22:16] LABS: WHITE BLOOD COUNT 5.9 10^3/ul (4.8-10.8)
[2019-01-10 22:16] LABS: BASOPHILS % 0.3 % (0.0-2.0); EOSINOPHILS % 0.5 % (0.0-7.0); HEMATOCRIT 37.1 % (42.0-52.0); HEMOGLOBIN 11.8 g/dl (14.0-18.0); LYMPHOCYTES # 1.2 10^3/ul (0.8-2.9); LYMPHOCYTES % 20.6 % (15.0-51.0); MEAN CORPUSCULAR HEMOGLOBIN 29.6 pg (29.0-33.0); MEAN CORPUSCULAR HGB CONC 31.8 g/dl (32.0-37.0); MEAN CORPUSCULAR VOLUME 93.2 fl (82.0-101.0); MEAN PLATELET VOLUME 8.4 fl (7.4-10.4); MONOCYTE # 0.5 10^3/ul (0.3-0.9); MONOCYTES % 8.2 % (0.0-11.0); NEUTROPHIL # 4.1 10^3/ul (1.6-7.5); NEUTROPHILS % 70.1 % (39.0-77.0); PLATELET COUNT 225 10^3/UL (140-415); RED BLOOD COUNT 3.98 10^6/ul (4.70-6.10); RED CELL DISTRIBUTION WIDTH 12.5 % (11.5-14.5)
[2019-01-10 22:33] LABS: ALANINE AMINOTRANSFERASE 24 IU/L (13-69); ALBUMIN 4.3 g/dl (3.3-4.9); ALBUMIN/GLOBULIN RATIO 1.19; ALKALINE PHOSPHATASE 81 IU/L (42-121); ANION GAP 12 (5-13); ASPARTATE AMINO TRANSFERASE 26 IU/L (15-46); BILIRUBIN,INDIRECT 0.4 mg/dl (0-1.1); BILIRUBIN,TOTAL 0.4 mg/dl (0.2-1.3); BLOOD UREA NITROGEN 19 mg/dl (7-20); CALCIUM 9.4 mg/dl (8.4-10.2); CARBON DIOXIDE 24 mmol/L (21-31); CHLORIDE 106 mmol/L (97-110); CREATININE 1.22 mg/dl (0.61-1.24); Estimated GFR > 60 mL/min (>60); GLUCOSE 126 mg/dl (70-220); POTASSIUM 3.6 mmol/L (3.5-5.1); SODIUM 142 mmol/L (135-144); TOTAL PROTEIN 7.9 g/dl (6.1-8.1)
[2019-01-10 22:44] LABS: TROPONIN-I < 0.012 ng/ml (0.000-0.120)
[2019-01-10 22:47] LABS: INR 1.12; PROTIME 14.5 Sec (11.9-14.9); PT RATIO 1.1
[2019-01-10 22:48] LABS: PARTIAL THROMBOPLASTIN TIME 31.6 Sec (23.0-35.0)
[2019-01-10 22:51] LABS: VALPROATE 30 ug/ml (50-100)
[2019-01-10 22:52] LABS: PHENYTOIN (DILANTIN) < 3.0 ug/ml (10.0-20.0)
[2019-01-10] MEDS ORDERED: DIVALPROEX (EC) 500 MG TAB PO (23:30)
[2019-01-10] MEDS: DIVALPROEX (EC) 250 MG TAB PO (23:59)
[2019-01-10] MEDS: FOSPHENYTOIN (PE) 1,000 MG in SOD CHLORIDE 0.9% 80 ML IVPB (23:59)
== END 2019-01-11 09:50 | disposition home or self-care (01) ==
LOC: E/R 01-11 09:50
DX: K92.0 Hematemesis (principal); D64.9 Anemia, unspecified; F10.10 Alcohol abuse, uncomplicated; R00.0 Tachycardia, unspecified; I10 Essential (primary) hypertension
CPT/HCPCS: 36415; 80053; 80164; 80185; 80307; 84484; 85025; 85610; 85730; 86850; 86900; 86901; 93005; 96374; 99284-25

== ENCOUNTER 2019-03-12 00:05 | Emergency (ER) | payer OTHER ==
[2019-03-12] MEDS: WARFARIN 10 MG TAB PO (00:46)
[2019-03-12] MEDS: WARFARIN 2.5 MG TAB PO (00:46)
[2019-03-12] MEDS: ENOXAPARIN 80 MG/0.8 ML SYG SC (00:47)
== END 2019-03-12 01:23 ==
LOC: E/R 00:05
DX: I82.412 Acute embolism and thrombosis of left femoral vein (principal); I10 Essential (primary) hypertension; Z91.010 Allergy to peanuts; Z79.01 Long term (current) use of anticoagulants
CPT/HCPCS: 93970; 99284-25